=== PATIENT | male | born 1955 | race Caucasian/White ===

== ENCOUNTER 2016-12-21 11:04 | Emergency (ER) | payer OTHER, BC ==
[~2016-12-21] VITALS: Ht 180.3 cm; Wt 97.1 kg
[2016-12-21 11:10] VITALS: BP 131/83
--- NOTE | 2016-12-21 11:23 | PHYS DOC ---
Adult General Chief Complaint Chief Complaint: chemical exposure HPI HPI Patient is a 61 year old male who presents with chemical exposure to his face. States he was cleaning with [employer] lead (potassium hydroxide & sodium hydroxide) just prior to arrival, & some of the product splashed into his eyes. He was wearing regular glasses, not goggles. He doesn't believe any of the solution entered his eyes or his mouth. A coworker helped him to immediately irrigate his face & eyes. He denies any vision changes, eye itching , eye pain. No facial pain or itching. Denies any ingestion, no vomiting, no shortness of breath. He has no complaints but would like to be checked out. Review of Systems Review of Systems Constitutional: Denies fever or chills Eyes: Denies change in visual acuity HENT: Denies nasal congestion or sore throat Respiratory: Denies cough or shortness of breath Cardiovascular: Denies chest pain GI: Denies abdominal pain, nausea, or diarrhea Musculoskeletal: Denies back pain or joint pain Integument: Denies rash or skin lesions Neurologic: Denies headache Physical Exam Physical Exam Constitutional: Well developed, well nourished, no acute distress, non-toxic appearance. HENT: Normocephalic, atraumatic, bilateral external ears normal, oropharynx moist, nose normal. slight mild erythema to nose & left cheek. no rash. Eyes: PERRLA, EOMI, left conjunctival injection, normal conjunctiva on the right , no discharge. visual acuities as documented by RN, no corneal abrasion with fluorescein stain. Neck: supple, no stridor. Cardiovascular: RRR, no murmurs, no edema. Lungs & Thorax: LCTAB, no wheezing, no respiratory distress. Abdomen: soft, nontender, nondistended. Skin: Warm, dry, no erythema, no rash. Back: No tenderness. Extremities: No tenderness, no edema. Neurologic: Alert and oriented X 3 EKG EKG [] Radiology/Procedures Radiology/Procedures [] Course & Med Decision Making Course & Med Decision Making Pertinent Labs and Imaging studies reviewed. (See chart for details) The patient presents with chemical exposure to his face. He had already performed adequate irrigation at time of injury. Asymptomatic here in the emergency department. Left conjunctiva appears injected although it's possible that this could be from irrigation as he seems fairly confident that noted of the solution splashed into his eye. He does think that both once his of his glasses had some splashes on them. Visual acuity is as documented by RN. RN contacted poison control, they had no additional information about this particular substance but agree with irrigation and further eye exam. No evidence of corneal abrasion with fluorescein stain and with lamp illumination. Discussed management with patient. Usual practice would be erythromycin ointment. Because he is completely asymptomatic and not sure if there was actually any ocular exposure, I provided prescription for erythromycin and instructed him to fill if he has any eye symptoms or notices persistent redness. May apply Neosporin or triple antibiotic if he experiences facial burning or pain. Follow-up as needed with eye doctor for ongoing eye symptoms. Return to the emergency department for visual loss or any otherwise worsening condition. Discharged home in stable condition. [] Dragon Disclaimer Dragon Disclaimer This chart was dictated in whole or in part using Voice Recognition software in a busy, high-work load, and often noisy Emergency Department environment. It may contain unintended and wholly unrecognized errors or omissions. Departure Departure: Impression: Primary Impression: Chemical exposure of eye Disposition: HOME, SELF-CARE Condition: STABLE Referrals: SHERYL CABRERA (PCP) Patient Instructions: Chemical Burn, [id number], Conjunctivitis, Chemical, [id number] Additional Instructions: You were seen in the emergency department today for chemical exposure. There was no obvious damage to your eyes although they appeared red here. Typically we would prescribe antibiotic ointment to be applied 4 times daily. Because you don't think any of the chemical splashed into your eyes, you could wait & see if your eyes still look red this evening. If not, probably not necessary to use the ointment. If any symptoms such as redness, itching, burning, pain, we would recommend getting the ointment & using for 5-7 days. You can apply neosporin or triple antibiotic ointment if your skin is irritated. Follow up as needed with eye doctor for additional concerns. Come back for loss of vision or otherwise worsening condition. Please wear safety goggles when using harmful chemicals! Scripts Erythromycin Base (Erythromycin) 1 Gm Oint...g. 1 APPLIC OP QID for 7 Days, #1 UNIT Prov: ISIDRA RODRIGUES MD 12/21/16 ISIDRA RODRIGUES MD Dec 21, 2016 11:23
[2016-12-21] MEDS ORDERED: FLUORESCEIN 1MG EYE STRIP. OU ONE (11:30)
[2016-12-21] MEDS ORDERED: TETRACAINE 0.5% OPHTH SOLUTION 4ML BOTTLE. OU ONE (11:30)
[2016-12-21] MEDS ORDERED: ERYT1OIN6 OP (11:46)
== END 2016-12-21 12:03 | disposition home or self-care (01) ==
LOC: ER 11:04
DX: Z77.098 Contact with and (suspected) exposure to other hazardous, chiefly nonmedicinal, chemicals (principal)
CPT/HCPCS: 99283

== ENCOUNTER → 2017-05-03 | Outpatient (CLI) | payer OTHER, BC ==
[~2017-05-03] MED LIST: BUPIVACAINE MPF 0.25% 10 ML VIAL. ONE; ERYT1OIN6 OP; LIDOCAINE 1% PF 30 ML VIAL. ONE; LIDOCAINE 2% PF Vial for OR 5 ML VIAL. ONE; MIDAZOLAM HCL PF 2 MG/2 ML VIAL. ONE; PROPOFOL 20 ML IV ONE; fentaNYL PF 250 MCG/5 ML VIAL ONE; methylPREDNISolone ACETATE 40 MG/ML VIAL. ONE
== END | disposition home or self-care (01) ==
LOC: SURG 10:20
PROVIDERS: ATTEND Anesthesiology Pain Medicine
DX: M47.816 Spondylosis without myelopathy or radiculopathy, lumbar region (principal); M19.91 Primary osteoarthritis, unspecified site; Z72.0 Tobacco use; Z72.89 Other problems related to lifestyle
CPT/HCPCS: 64635; 64636; J1030; J2001; J2250; J2704; J3010; J3490

== ENCOUNTER → 2017-05-17 | Outpatient (CLI) | payer OTHER, BC ==
[~2017-05-17] MED LIST changes: +IV NORMAL SALINE 1,000ML 1,000 ML ONE; -LIDOCAINE 2% PF Vial for OR 5 ML VIAL. ONE; -PROPOFOL 20 ML IV ONE; -fentaNYL PF 250 MCG/5 ML VIAL ONE
== END | disposition home or self-care (01) ==
LOC: SURG 07:33
PROVIDERS: ATTEND Anesthesiology Pain Medicine
DX: M47.896 Other spondylosis, lumbar region (principal); M47.816 Spondylosis without myelopathy or radiculopathy, lumbar region; F17.210 Nicotine dependence, cigarettes, uncomplicated; F10.99 Alcohol use, unspecified with unspecified alcohol-induced disorder; M19.90 Unspecified osteoarthritis, unspecified site
CPT/HCPCS: 64635; 64636; J1030; J2001; J2250; J3010; J3490; J7030